=== PATIENT | male | born 1995 | race Caucasian/White ===

== ENCOUNTER → 2021-04-11 | Outpatient (CLI) | payer OTHER | END | disposition home or self-care (01) | LOC: RADMN 13:26 | PROVIDERS: ATTEND Student in an Organized Health Care Education/Training Program | DX: M51.37 Other intervertebral disc degeneration, lumbosacral region (principal); M76.892 Other specified enthesopathies of left lower limb, excluding foot | CPT/HCPCS: 72195 ==